=== PATIENT | female | born 1995 | race Caucasian/White ===

== ENCOUNTER 2017-05-18 09:05 | Emergency (ER) | payer SELFPAY ==
[~2017-05-18] VITALS: Ht 167.6 cm; Wt 102.1 kg
[~2017-05-18 09:05] MED LIST: AMOXICILLIN 50500 MG PO; BACTRIM DS 8001 TA1 PO; HYDROCORTI30 GM/TUB1 TP; KEFLEX500 M1 PO; NAPROXEN SODIU500 MG PO; NOMEDS; PREDNISONE 20MG20 MG PO; TYLENOL W/CODEI1 TA2 PO; TYLENOL WITH CO1 TA1 PO; ZITHROMAX Z PA250 MG PO
[2017-05-18 09:16] LABS: URINE BILIRUBIN - DIPSTICK NEGATIVE (NEG); URINE BLOOD 3+ (NEG)
--- NOTE | 2017-05-18 09:18 | Emergency Room Report ---
History of Present Illness Time Seen by MD Diaz Presenting Problem in Triage Pt arrived:Walked Presenting Problem:VAGINAL BLEEDING; PT STATES SHE IS 3 MOS PREG-STATES WHEN SHE GOT UP AND WIPED THIS MORNING THERE WAS SOME BLOOD PRESENT. IS NOT WEARING A PAD CAUSE SHE SAYS "ITS NOT LIKE THAT". MENTIONS THAT SHE HASN'T HAD A BM IN TWO DAYS AND THAT SHE HAD SOME DISCOMFORT IN HER LOW BELLY LAST NIGHT. 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 N Clinical Suspician of Infection? N Mental Status: 1 - Regular (Normal Baseline) Sepsis Risk:Low Sepsis Risk Have you (or family members/close friends) recently traveled outside the [place]? N If Yes, where/when: Have you had exposure to infectious disease within the past month? TB? Other? Specify: Comment The patient is prima last normal menstrual period of March 05 and now complains of vaginal bleeding that began this morning. She says she only bled a small amount. No pain. She had a positive test at the [facility] in early April and also a positive [id number] test. She is scheduled for her first OB visit with Dr. Feng on 05/22/17. ALLERGIES Coded Allergies: No Known Allergies (05/18/17) History Medical History General CAD? No Angina: No NE: No Hypertension? No Hyperlipidemia? No CHF? No DVT? No PE? No COPD? No Asthma? No Anemia? No GERD? No Gastric ulcers? No GI Bleed? No Hernia? No Thyroid Problems? No Hypothyroidism? No CVA? No Seizures? No Diabetes? No Renal Insuffiency? No End Stage Renal Disease? No UTI? No Stones? No BPH? No GB Disease: No Nephritic Syndrome? No Asplenia? No Hepatitis? No Sickle Cell Disease? No Arthritis? No Migraines? No Cataracts? No Glaucoma? No MRSA? No HIV? No TB? No Anxiety? No Depression? No Cancer? No More? No Immunization Hx Ped.Immunizations UTD Yes DT/Tetanus 1-4 Years Ago Flu Refused Pneumonia Never Had Surgical Hx Previous Surgery?Y T&A EAR TUBES RIGHT SHOULDER RIGHT 5TH FINGER CYST ON COCCYX VP CLINICAL Hx LMP 2 Months Ago Est.Due Date [id number] OB DR FENG Family History Family Hx Diabetes Yes CAD No Hypertension Yes Hyperlipidemia No Cancer No TB No Social History Smoking Hx Smoker: Current Every Day Smoker Tobacco: No Type N/A Packs/day < 1 Pack Are you/the child exposed to second-hand smoke: No Alcohol Alcohol: No Review of Systems All Other Systems Reviewed and Negative Gastrointestinal denies abdominal pain, denies vomiting Genitourinary abnormal vaginal bleeding. denies: dysuria, frequency. Physical Exam Vital Signs Vital Signs Date Time Temp Pulse Resp B/P Pulse O2 O2 Flow FiO2 Ox Delivery Rate 05/18 1218 97.8 72 18 121/72 98 05/18 0910 97.8 72 18 121/72 99 General Appearance no apparent distress Respiratory Status No: respiratory distress. Lung Sounds bilateral: normal breath sounds, lungs clear. Cardiovascular regular rate/rhythm, no gallop, no murmur Gastrointestinal normal bowel sounds, normal exam, non tender, soft Pelvic normal external exam, small amount of blood at the cervix. Cervix closed. No definite tissue seen. Nurse present during exam? Yes Neurologic alert Medical Decision Making LABS/Meds/Orders Pt receiving controlled substance in ED? No Results/Orders Laboratory Tests 05/18/17 1020: Sodium 138, Potassium 4.7, Chloride 105, Carbon Dioxide 26, BUN 15, Creatinine 0.5 L, Estimated Creat Clear 287 H, Estimated GFR (MDRD) 156, Glucose 88, Calcium 9.1, Total Bilirubin 0.2, AST 15, ALT 37, Alkaline Phosphatase 64, Total Protein 7.2, Albumin 3.3 L, Globulin 3.9 H, Albumin/Globulin Ratio 0.8 L, Beta HCG, Quant 78955.6 05/18/17 0935: WBC 11.9 H, RBC 4.26, Hgb 12.9, Hct 38.6, MCV 90.6, RDW 12.1, Plt Count 308, MPV 7.3 L, Gran % 72.1, Gran # 8.5 H, Lymphocytes % 16.1, Monocytes % 6.5, Eosinophils % 4.7, Basophils % 0.5, Lymphocytes # 1.9, Monocytes # 0.8, Eosinophils # 0.6 H, Basophils # 0.1, PUBS MCHC 33.4, MCH 30.3 05/18/17 0910: Urine Color ORANGE, Urine Appearance CLOUDY, Urine pH 6.5, Ur Specific [place] 1.015, Urine Protein NEGATIVE, Urine Ketones NEGATIVE, Urine Blood 3+ H, Urine Nitrate NEGATIVE, Urine Bilirubin NEGATIVE, Urine Urobilinogen 0.2, Ur Leukocyte Esterase NEGATIVE, Urine RBC OCC, Urine WBC 3-5, Ur Squamous Epith Cells 5-10, Urine Bacteria 2+, Urine Glucose NEGATIVE Current Medication Orders Sig/Eligio Start time Last Medication Dose Route Stop Time Status Admin Sodium Chloride 10 ML PRN PRN 05/18 915 DCD IV 05/19 908 Orders Procedure Date/time Status GEN NSG/PT REQ (NOT FOR MEDS!) 05/18 1136 Active URINE 05/18 1008 Complete CULTURE, URINE 05/18 910 Active IV SALINE LOCK 05/18 909 Active URINALYSIS/COMPLETE 05/18 909 Complete SERUM , QUAL 05/18 909 Complete CBC WITH AUTO DIFF 05/18 909 Complete CHEM 12 PROFILE 05/18 909 Complete BETA-HCG, QUANT 05/18 909 Complete XRAY/CT/US XRAY/CT/US Ultrasound pelvis Comment As per [facility] procedure, ultrasound report received from explosive ordnance disposal technician: Fluid in the endometrial canal. No yolk sac or pole seen. Ovaries normal. Progress - Explained to the patient that most likely this represents a miscarriage, given that there is no identifiable fetus or yolk sac in the uterus. Advised of need for repeat beta hCG in 2 days and follow-up with her sales special agent. Departure Departure Disposition DC Home or Self Care(routine) Clinical Impression Primary Impression: Vaginal bleeding in patient at less than 20 weeks gestation Condition STABLE Referrals Tequila Valdivia APRN (Family) Patient Instructions DI for Threatened Additional Instructions Bed rest for 2 days, no strenuous activity. No sexual intercourse for 2 days. Return to the lab on Saturday05/20/17 for repeat beta hCG level. See Dr. Feng on 05/22/17 as scheduled. Return to emergency room if severe bleeding or severe pain. ED Critical Care Critical Care No at [id number]
--- NOTE | 2017-05-18 09:18 | Emergency Room Report ---
History of Present Illness Time Seen by MD Diaz Presenting Problem in Triage Pt arrived:Walked Presenting Problem:VAGINAL BLEEDING; PT STATES SHE IS 3 MOS PREG-STATES WHEN SHE GOT UP AND WIPED THIS MORNING THERE WAS SOME BLOOD PRESENT. IS NOT WEARING A PAD CAUSE SHE SAYS "ITS NOT LIKE THAT". MENTIONS THAT SHE HASN'T HAD A BM IN TWO DAYS AND THAT SHE HAD SOME DISCOMFORT IN HER LOW BELLY LAST NIGHT. 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 N Clinical Suspician of Infection? N Mental Status: 1 - Regular (Normal Baseline) Sepsis Risk:Low Sepsis Risk Have you (or family members/close friends) recently traveled outside the [place]? N If Yes, where/when: Have you had exposure to infectious disease within the past month? TB? Other? Specify: Comment The patient is prima last normal menstrual period of March 05 and now complains of vaginal bleeding that began this morning. She says she only bled a small amount. No pain. She had a positive test at the [facility] in early April and also a positive [id number] test. She is scheduled for her first OB visit with Dr. Feng on 05/22/17. ALLERGIES Coded Allergies: No Known Allergies (05/18/17) History Medical History General CAD? No Angina: No [place]: No Hypertension? No Hyperlipidemia? No CHF? No DVT? No PE? No COPD? No Asthma? No Anemia? No GERD? No Gastric ulcers? No GI Bleed? No Hernia? No Thyroid Problems? No Hypothyroidism? No CVA? No Seizures? No Diabetes? No Renal Insuffiency? No End Stage Renal Disease? No UTI? No Stones? No BPH? No GB Disease: No Nephritic Syndrome? No Asplenia? No Hepatitis? No Sickle Cell Disease? No Arthritis? No Migraines? No Cataracts? No Glaucoma? No MRSA? No HIV? No TB? No Anxiety? No Depression? No Cancer? No More? 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 denies: dysuria, frequency. Physical Exam Vital Signs Vital Signs Date Time Temp Pulse Resp B/P Pulse O2 O2 Flow FiO2 Ox Delivery Rate 05/18 1218 97.8 72 18 121/72 98 05/18 0910 97.8 72 18 121/72 99 General Appearance no apparent distress Respiratory Status No: respiratory distress. Lung Sounds bilateral: normal breath sounds, lungs clear. Cardiovascular regular rate/rhythm, no gallop, no murmur Gastrointestinal normal bowel sounds, normal exam, non tender, soft Pelvic normal external exam, small amount of blood at the cervix. Cervix closed. No definite tissue seen. Nurse present during exam? Yes Neurologic alert Medical Decision Making LABS/Meds/Orders Pt receiving controlled substance in ED? No Results/Orders Laboratory Tests 05/18/17 1020: Sodium 138, Potassium 4.7, Chloride 105, Carbon Dioxide 26, BUN 15, Creatinine 0.5 L, Estimated Creat Clear 287 H, Estimated GFR (MDRD) 156, Glucose 88, Calcium 9.1, Total Bilirubin 0.2, AST 15, ALT 37, Alkaline Phosphatase 64, Total Protein 7.2, Albumin 3.3 L, Globulin 3.9 H, Albumin/Globulin Ratio 0.8 L, Beta HCG, Quant 14328.6 05/18/17 0935: WBC 11.9 H, RBC 4.26, Hgb 12.9, Hct 38.6, MCV 90.6, RDW 12.1, Plt Count 308, MPV 7.3 L, Gran % 72.1, Gran # 8.5 H, Lymphocytes % 16.1, Monocytes % 6.5, Eosinophils % 4.7, Basophils % 0.5, Lymphocytes # 1.9, Monocytes # 0.8, Eosinophils # 0.6 H, Basophils # 0.1, PUBS MCHC 33.4, MCH 30.3 05/18/17 0910: Urine Color ORANGE, Urine Appearance CLOUDY, Urine pH 6.5, Ur Specific [place] 1.015, Urine Protein NEGATIVE, Urine Ketones NEGATIVE, Urine Blood 3+ H, Urine Nitrate NEGATIVE, Urine Bilirubin NEGATIVE, Urine Urobilinogen 0.2, Ur Leukocyte Esterase NEGATIVE, Urine RBC OCC, Urine WBC 3-5, Ur Squamous Epith Cells 5-10, Urine Bacteria 2+, Urine Glucose NEGATIVE Current Medication Orders Sig/Eligio Start time Last Medication Dose Route Stop Time Status Admin Sodium Chloride 10 ML PRN PRN 05/18 915 DCD IV 05/19 908 Orders Procedure Date/time Status GEN NSG/PT REQ (NOT FOR MEDS!) 05/18 1136 Active URINE 05/18 1008 Complete CULTURE, URINE 05/18 910 Active IV SALINE LOCK 05/18 909 Active URINALYSIS/COMPLETE 05/18 909 Complete SERUM , QUAL 05/18 909 Complete CBC WITH AUTO DIFF 05/18 909 Complete CHEM 12 PROFILE 05/18 909 Complete BETA-HCG, QUANT 05/18 909 Complete XRAY/CT/US XRAY/CT/US Ultrasound pelvis Comment As per [facility] procedure, ultrasound report received from foundry technician: Fluid in the endometrial canal. No yolk sac or pole seen. Ovaries normal. Progress - Explained to the patient that most likely this represents a miscarriage, given that there is no identifiable fetus or yolk sac in the uterus. Advised of need for repeat beta hCG in 2 days and follow-up with her claim specialist. Departure Departure Disposition DC Home or Self Care(routine) Clinical Impression Primary Impression: Vaginal bleeding in patient at less than 20 weeks gestation Condition STABLE Referrals Tequila Valdivia APRN (Family) Patient Instructions DI for Threatened Additional Instructions Bed rest for 2 days, no strenuous activity. No sexual intercourse for 2 days. Return to the lab on Saturday05/20/17 for repeat beta hCG level. See Dr. Feng on 05/22/17 as scheduled. Return to emergency room if severe bleeding or severe pain. ED Critical Care Critical Care No at [id number]
--- OUTSIDE RECORDS SUMMARY | 2017-05-18 09:22 | External Medical Summary Rpt | CCD ---
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 NEW PT 1/> VST IAADIADOO 54852 [facility] DARYL, 9 N SHARONA P INFLUENZA PEDIATRIC S PSC IM ADM 74753 [facility]/CO NITIN PRQ ID [address] [place] [address] [facility] BANK ACCT CENTER VACCINE IAADIADOO 41969 [facility] KLAUDIA, 9 N JEAN Moore [facility] P[facility] CCUS S PSC GROUP A IAADIADOO 55818 [facility] SHARRON, 8 N ERIKA STREPT[facility]O PEDIATRIC S CCUS S PSC GROUP A Encounters Encounter Start End Date Code Location Performer Type Date [facility] NEFTALI - 7 7 [facility] OUTPATIEN INC T OFFICE 51092 [facility] JOHN OUTNEDA 7 7 PHYSICIAN T VISIT S GROUP 15 MINUTES EMERGENCY 35072 KENNA SANABRIA 7 7 PHYSICIAN DEPARTMEN S, PLLC T VISIT MODERATE SEVERITY EMERGENCY 18670 NEFTALI 7 7 [facility] T VISIT LOW/MODER SEVERITY HOSPITAL [facility]I [facility] 7 7 [facility] EMERGENCY 23218 NEFTALI 7 7 [facility] T VISIT LOW/MODER SEVERITY HOSPITAL NEFTALI - 7 7 [facility] HOSPITAL NEFTALI - 6 6 [facility] EMERGENCY 63463 NEFTALI 6 6 [facility] T VISIT LIMITED/M INOR PROB EMERGENCY 11343 KENNA DEAN 6 6 PHYSICIAN U [facility] S, [facility] T VISIT MODERATE SEVERITY EMERGENCY 25019 KENNA ALBA 6 6 PHYSICIAN [facility], [facility] T VISIT HIGH/URGE NT SEVERITY EMERGENCY 60990 NEFTALI 5 5 [facility] T VISIT LIMITED/M INOR PROB HOSPITAL NEFTALI - 5 5 [facility] EMERGENCY 05337 KENNA DIAZ 5 5 PHYSICIAN [facility] S, [facility] T VISIT LOW/MODER SEVERITY [facility] - 5 [facility] 34168 NEFTALI LINDSAY 5 5 SCO SCO [facility] T VISIT MODERATE SEVERITY EMERGENCY 69516 ERIN KHAN 5 5 [place] [facility] T VISIT MODERATE SEVERITY HOSPITAL NEFTALI - 5 5 [facility] 87596 NEFTALI 5 5 [facility] T VISIT HIGH/URGE NT SEVERITY [facility]OSPITAL [facility]ANK[facility] - 5 5 [facility] OFF[facility] 85104 [place] LIAU JAM OUTPATIEN 5 5 MEDICAL T NEW 20 SERV MINUTES FOUNDATIO N EMERGENCY 07193 [place] JOSE 5 5 MEDICAL GABRIEL DEPARTMEN SERV T VISIT FOUNDATIO MODERATE N SEVERITY EMERGENCY 48481 ROMY STANTON, 5 5 JR MICHAELZ JR EMANUEL DEPARTMEN T VISIT HIGH/URGE NT SEVERITY HOSPITAL NEFTALI - 5 5 [facility] OUTPATIEN INC T HOSPITAL NEFTALI - 5 5 [facility] OUTPATIEN INC T OFFICE 89267 [facility] PETTEY OUTPATIEN 5 5 PHYSICIAN JAM T VISIT S GROUP 15 MINUTES OFFICE 92604 [facility] 5 5 DIST [facility] DIST [facility] T VISIT DEPT DEPT 10 [place] MINUTES EMERGENCY 89710 DANIELLE ALBA 4 4 FABRIZIO FABRIZIO DEPARTMEN T VISIT MODERATE SEVERITY OFFICE 63456 [facility] DANIELLE OUTPATIEN 4 4 PHYSICIAN FABRIZIO T VISIT S GROUP 15 MINUTES INITIAL 93037 [facility] PREVENTIV 4 4 [facility] DEPT [facility] DEPT MEDICINE [facility] PT AGE 12-17 YR [facility] [place] - 4 4 REGIONAL OUTPATIEN MEDICAL T CE Emergency JULIO CESAR Alba MD (ER) 3 02:00 3 04:02 [facility] OFF[facility] 48886 [facility] PETTEY OUTPATIEN 2 2 PHYSICIAN JAM T NEW 20 S GROUP MINUTES HOSPITAL NEFTALI - 2 2 [facility] OUTPATIEN INC T EMERGENCY 05917 NORA ALBA 2 2 EMERGENCY FABRIZIO DEPARTMEN SERVICES T VISIT HIGH/URGE NT SEVERITY EMERGENCY 38027 NEFTALI 2 2 [facility] DEPARTMEN INC T VISIT LOW/MODER SEVERITY OFFICE 89576 SPEACH SPEACH CONSULTAT 2 2 ALB ALB ION NEW/ESTAB PATIENT 40 MIN OFFICE 19509 [facility] 2 N SH ELSY T VISIT PEDIATRIC 25 S PSC MINUTES HOSPITAL NEFTALI - 2 2 [facility] OUTPATIEN INC T EMERGENCY 96633 NEFTALI 2 2 [facility] DEPARTMEN INC T VISIT LOW/MODER SEVERITY EMERGENCY 01849 NORA CAMPOS 2 2 EMERGENCY III RONEN DEPARTMEN SERVICES T VISIT MODERATE SEVERITY HOSPITAL NEFTALI - 2 2 [facility]ERG[facility] 44790 NEFTALI 2 2 [facility] DEPARTMEN INC T VISIT LOW/MODER SEVERITY EMERGENCY 83512 NORA SAUCEDO 2 2 EMERGENCY DEPARTMEN SERVICES T VISIT HIGH/URGE NT SEVERITY EMERGENCY 62379 [facility] 1 1 N [facility] COMMUNITY T VISIT HOSPITA LOW/MODER SEVERITY EMERGENCY 45739 NORA PARRISH 1 1 EMERGENCY [facility] [facility] DEPARTMEN SERVICES T VISIT MODERATE SEVERITY HOSPITAL [facility] - 1 1 N [facility] T HOSPITA [facility]ICE 21938 [facility] 1 1 N JOVANNA T VISIT PEDIATRIC 25 S PSC MINUTES OFFICE 01302 [facility] 1 N T VISIT PEDIATRIC 10 S PSC MINUTES EMERGENCY 00671 [facility] 1 1 N DEPARTMEN COMMUNITY T VISIT HOSPITA HIGH/URGE NT SEVERITY EMERGENCY 33513 NORA EL 1 1 EMERGENCY DEPARTMEN SERVICES T VISIT MODERATE SEVERITY HOSPITAL [facility] - 1 1 N OUTPATIEN COMMUNITY T HOSPITA OFFICE 66795 [facility] 1 1 N JOVANNA T VISIT PEDIATRIC 25 S PSC MINUTES OFFICE 46952 [facility] NAYLA OUTPATIEN 1 1 N JOVANNA T VISIT PEDIATRIC 15 S PSC MINUTES OFFICE 76708 [facility] NAYLA OUTPATIEN 0 0 N JOVANNA T VISIT PEDIATRIC 15 S PSC MINUTES OFFICE 52173 [facility] SHARRON OUTPATIEN 0 0 N MICHELLE T VISIT PEDIATRIC 15 S PSC MINUTES OFFICE 33233 [facility] KLAUDIA, OUTPATIEN 0 0 N JEAN Moore T VISIT PEDIATRIC 15 S PSC MINUTES OFFICE 29525 [facility] DARYL OUTPATIEN 9 9 N SHARONA P T VISIT PEDIATRIC 15 S PSC MINUTES OFFICE 20445 [facility] SHARRON OUTPATIEN 9 9 N ERIKA T VISIT PEDIATRIC S 15 S PSC MINUTES OFFICE 05045 [facility] NITIN OUTPATIEN 9 9 [facility] T VISIT [facility] 10 [facility] MINUTES OFFICE 37605 [facility] K[place]UD[facility], OUTPATIEN 9 9 N JEAN Moore T VISIT PEDIATRIC 15 S PSC MINUTES OFFICE 72485 [facility] SHARRON OUTPATIALEJANDRO 8 8 N ERIKA T VISIT PEDIATRIC S 15 S PSC MINUTES PERIODIC 92979 [facility] KLAUDIA PREVENTIV 8 8 N JEAN Moore E MED EST PEDIATRIC PATIENT S PSC [id number]
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
--- OUTSIDE RECORDS SUMMARY | 2017-05-18 09:25 | External Medical Summary Rpt | CCD ---
Author Author , NEHA SOLMOON Address Unknown Phone [email or web address] Immunization Name Date Rout CVX Reac Dose Comm Prov Is Faci e tion ent ider Refu lity Give sed n HPV4 07-2 62 999 Hist H205 No H205 2-20 oric (Gar 09 al dasi Info l) rmat ion - Sour ce Unsp ecif ied MCV4 08-0 147 999 Hist H205 No H205 UF 4-20 oric 08 al Info rmat ion - Sour ce Unsp ecif ied Tdap 08-0 115 999 Hist H205 No H205 , 4-20 oric Adso 08 al rbed Info rmat ion - Sour ce Unsp ecif ied HPV4 08-0 62 999 Hist H205 No H205 4-20 oric (Gar 08 al dasi Info l) rmat ion - Sour ce Unsp ecif ied
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
--- OUTSIDE RECORDS SUMMARY | 2017-05-18 09:25 | External Medical Summary Rpt ---
Author Author NEHA Gibson, JOSEDIMAS [employer] Organization [facility] [employer] Address Unknown Phone Unavailable Results Choriogonadotropin.beta subunit [Units] in 24 hour Urine Observa Value Referen Units Interpr Notes Date tion ce etation Range Choriogon NEG No No Nichole December 19 adotropin informati informati 2016 7:24 .beta on in on in AM subunit source source [Units] data data in 24 hour Urine Basic metabolic panel in Blood Observa Value Referen Units Interpr Notes Date tion ce etation Range Urea 7 - 18 mg/dL Normal No December 17 nitrogen informati 2016 [Mass/vol on in 11:29 AM ume] in source Serum or data Plasma Calcium 8.5 - mg/dL Normal No December 17 [Mass/vol 10.1 informati 2016 ume] in on in 11:29 AM Serum or source Plasma data Chloride 98 - 107 mmoL/L Normal No December 17 [Moles/vo informati 2016 lume] in on in 11:29 AM Serum or source Plasma data Carbon 21.0 - mmoL/L Normal No December 17 dioxide, 32.0 informati 2016 total on in 11:29 AM [Moles/vo source lume] in data Serum or Plasma Creatinin 0.55 - mg/dL Normal No December 17 e 1.02 informati 2016 [Mass/vol on in 11:29 AM ume] in source Serum or data Plasma Estimated 59- ML/MIN No REFERENCE December 17 informati RANGE: 2017 glomerula on in >60 11:29 AM r source ML/MIN/1. filtratio data 73 SQUARE n rate METERSIf (GF this patient is -A merican, then multiply theresult by 1.210. Glucose 74 - 106 mg/dL Normal No December 17 [Mass/vol informati 2016 ume] in on in 11:29 AM Serum or source Plasma data Potassium 3.5 - 5.1 mmoL/L Normal No December 17 informati 2016 [Moles/vo on in 11:29 AM lume] in source Serum or data Plasma Sodium 136 - 145 mmoL/L Normal No December 17 [Moles/vo informati 2016 lume] in on in 11:29 AM Serum or source Plasma data CBC W Auto Differential panel in Blood Observa Value Referen Units Interpr Notes Date tion ce etation Range Basophils 0 - 0.2 K/MM3 Normal No December 17 inform2016 [#/volume on in 11:29 AM ] in source Blood by data Automated count Basophils 0.1 - 2.0 % Normal No December 17 inform2016 leukocyte on in 11:29 AM s in source Blood by data Automated count Eosinophi 0.0 - 0.4 K/mm3 Normal No December 17 ls informati 2016 [#/volume on in 11:29 AM ] in source Blood by data Automated count Eosinophi 0.1 - % Normal No December 17 ls/100 12.0 inform2016 leukocyte on in 11:29 AM s in source Blood by data Automated count Granulocy 1.8 - 7.8 K/mm3 Normal No December 17 jonathan ati 2016 [#/volume on in 11:29 AM ] in source Blood by data Automated count Granulocy 37.0 - % Normal No December 17 jonathan/100 80.0 2016 leukocyte on in 11:29 AM s in source Blood by data Automated count Hematocri 37.0 - % Normal No December 17 t [Volume 47.0 informati 2016 on in 11:29 AM Fraction] source of Blood data Hemoglobi 12.2 - g/dL Normal No December 17 n 16.2 informati 2016 [Mass/vol on in 11:29 AM ume] in source Blood data Lymphocyt 0.7 - 4.5 K/mm3 Normal No December 17 es informati 2016 [#/volume on in 11:29 AM ] in source Unspecifi data ed specimen by Automated count Lymphocyt 10 - 50.0 % Normal No December 17 es informati 2016 [#/volume on in 11:29 AM ] in source Unspecifi data ed specimen by Automated count Erythrocy 27 - 31.2 pg High No December 17 te mean informati 2016 corpuscul on in 11:29 AM ar source hemoglobi data n [Entitic mass] Erythrocy 31.8 - g/dl Normal No December 17 te mean 35.4 informati 2016 corpuscul on in 11:29 AM ar source hemoglobi data n concentra tion [Mass/vol ume] by Automated count Erythrocy 82.2 - fl Normal No December 17 te mean 97.8 informati 2016 corpuscul on in 11:29 AM ar volume source [Entitic data volume] by Automated count Monocytes 0.1 - 1.0 K/mm3 Normal No December 17 informati 2016 [#/volume on in 11:29 AM ] in source Blood by data Automated count Monocytes 1.7 - 9.3 % Normal No December 17 / informati 2016 leukocyte on in 11:29 AM s in source Blood by data Automated count Platelet 7.4 - fl Low No December 17 mean 10.4 informati 2016 volume on in 11:29 AM [Entitic source volume] data in Blood by Automated count Platelets 142 - 424 K/mm3 Normal No December 17 informati 2016 [#/volume on in 11:29 AM ] in source Blood data Erythrocy 4.2 - 5.4 M/mm3 Normal No December 17 jonathan informati 2016 [#/volume on in 11:29 AM ] in source Amniotic data fluid Erythrocy 11.5 - % Normal No December 17 te 17.5 informati 2016 distribut on in 11:29 AM ion width source [Entitic data volume] by Automated count Leukocyte 4.5 - K/MM3 Normal No December 17 s 13.0 informati 2016 [#/volume on in 11:29 AM ] in source Blood data
--- OUTSIDE RECORDS SUMMARY | 2017-05-18 09:25 | External Medical Summary Rpt | CCD ---
Author Author , NEHA SOLOMON Address Unknown Phone [email or web address] Immunization Name Date Rout CVX Reac Dose [...]
[2017-05-18 09:42] LABS: HEMOGLOBIN 12.9 g/dL (12.2-16.2); LYMPH # 1.9 K/mm3 (0.7-4.5); LYMPH % 16.1 % (10-50.0)
[2017-05-18 12:18] VITALS: BP 121/72
--- NOTE | 2017-05-18 13:42 | RADIOLOGY REPORT PS360 ---
US TRANSVAGINAL PREG HISTORY: , bleeding with some bleeding. Patient Age: 22 years: Female Ordering Physician: Ariel Durham MD TECHNIQUE: Transvaginal pelvic ultrasound. COMPARISON : None FINDINGS A elongated definite free Fluid collection is seen seen at along entire cervical canal leading. Following approximately it leads to a a flattened deformed appearing fluid collection/gestational sac at the lower uterine cavity lower uterus. No discrete amnion/chorion.. . There is an small ill-defined elongated soft tissue density here lack of color Doppler flow to. No well-defined pole.. No heartbeat. Thus above Findings most likely reflect spontaneous AB in progress; with incomplete AB at this point. Additionally note unusually generous decidual thickening/endometrial thickening more superiorly surrounding this collapsed appearing gestational sac as well as extending anterior superior and posterior to this collapsed sac. This slight hyperechoic material may reflect some associated subchorionic bleeding possibly related to this spontaneous AB.. However I noted Noted elevated white count..-Thus If progressive pain or developed fever or other features develope this would benefit from follow-up imaging. Patient is sent to see Dr. Devi next week Correlation was serum beta hCG today and follow-up with repeat serum beta hCG 3 days recommended to better and further confirm suspected demise of this . Right ovary 2.2 x 1.6 x 2.3 cm. Left ovary 3.1 x 2.1 x 2.1 cm. No free fluid at cul-de-sac. IMPRESSION: . 1. Definite free fluid throughout the cervical canal with collapsed appearing irregular shaped residual gestational sac. Irregular elongated residual tissue here-with Lack of well-defined pole. No heartbeat. . No yolk sac All these features support spontaneous AB. Serial Quantitative serum beta-hCG well additionally confirm. 2.. Associated usually Prominent decidual thickening/endometrial thickening noted surrounding this collapsed gestational sac superiorly- as discussed in text. .
== END 2017-05-18 12:19 | disposition home or self-care (01) ==
LOC: ER 09:05
PROVIDERS: Emergency Medicine
DX: O20.9 Hemorrhage in early pregnancy, unspecified (principal); Z3A.01 Less than 8 weeks gestation of pregnancy; O99.331 Smoking (tobacco) complicating pregnancy, first trimester; F17.210 Nicotine dependence, cigarettes, uncomplicated

== ENCOUNTER → 2017-05-20 | Outpatient (CLI) | payer MEDICAID | LOC: LAB 13:55 | DX: O20.0 Threatened abortion (principal) ==